=== PATIENT | female | born 1975 | race Caucasian/White ===

== ENCOUNTER 2019-03-08 16:24 | Outpatient (CLI) | payer MEDICARE, SELFPAY ==
[2019-03-08 17:17] LABS: Alanine Aminotransferase 10 U/L (0-33); Albumin Level 4.5 g/dL (3.5-5.2); Alkaline Phosphatase 77 IU/L (35-105); Anion Gap 15.2 (5-19); Aspartate Amino Transferase 13 U/L (0-32); Basophils % 0.6 %; Blood Urea Nitrogen 6 mg/dL (6-20); Calcium 9.9 mg/Dl (8.6-10.0); Carbon Dioxide 30 mmol/L (22-29); Chloride 101 mmol/L (98-107); Eosinophils # 0.1 10^3/uL (0.0-0.8); Globulin 2.5 g/dL (1.3-4.6); Glomerular Filtration Rate 78.7 mL/min (90-130); Glucose 107 mg/dL (74-109); Hematocrit 42.4 % (37.0-47.0); Hemoglobin 13.7 g/dL (11.5-15.3); Lymphocytes # 2.1 10^3/uL (0.8-4.8); Lymphocytes % 31.9 %; Mean Corpuscular HGB Conc 32.3 g/dL (30.0-36.0); Mean Corpuscular Hemoglobin 30.9 pg (28.0-34.0); Mean Corpuscular Volume 95.5 fL (81-99); Mean Platelet Volume 13.1 fL (7.4-10.4); Monocytes # 0.3 10^3/uL (0.2-0.9); Monocytes % 4.8 %; Neutrophils # 4.1 10^3/uL (1.8-7.7); Neutrophils % 61.4 %; Nucleated Red Blood Cells % 0 %; Platelet Count 188 10^3/cmm (130-400); Potassium 4.2 mmol/L (3.5-5.1); Red Blood Count 4.44 10^6/uL (4.1-5.3); Red Cell Distribution Width 12.4 % (12.1-15.1); Sodium 142 mmol/L (136-145); Total Bilirubin 0.3 mg/dL (0.15-1.2); White Blood Count 6.7 10^3/uL (4.0-10.0)
[2019-03-08 19:16] LABS: Slide Review Slide Review Perform
[2019-03-12 16:02] LABS: Immunoglobulin E 66 kU/L (<OR=114)
== END 2019-03-08 16:25 | disposition home or self-care (01) ==
LOC: LAB 16:29
PROVIDERS: Visit Provider Internal Medicine Critical Care Medicine
DX: J45.909 Unspecified asthma, uncomplicated (principal)
CPT/HCPCS: 80053; 82785; 85025

== ENCOUNTER 2019-03-22 14:08 | Emergency (ER) | payer MEDICARE, SELFPAY ==
[2019-03-22 14:22] VITALS: BP 119/88; PULSE 67; RESP 20; TEMP 36.4; O2SAT 98; BMI 26.2
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
[2019-03-22] MEDS: HYDROcodone-acetaminophen 5-325 mg Tablet 1 TAB PO (17:07)
[2019-03-22 17:09] VITALS: PULSE 76; RESP 16; O2SAT 98
== END 2019-03-22 17:10 | disposition home or self-care (01) ==
PROVIDERS: Emergency Provider Physician Assistant
DX: S00.83XA Contusion of other part of head, initial encounter (principal); S90.31XA Contusion of right foot, initial encounter; S06.0X0A Concussion without loss of consciousness, initial encounter; R07.81 Pleurodynia; M54.2 Cervicalgia; Y04.2XXA Assault by strike against or bumped into by another person, initial encounter; J44.9 Chronic obstructive pulmonary disease, unspecified; F17.210 Nicotine dependence, cigarettes, uncomplicated
CPT/HCPCS: 70450; 70486; 71101; 72125; 73630; 99281; 99284

== ENCOUNTER 2019-05-11 10:40 | Emergency (ER) | payer MEDICARE, SELFPAY ==
[2019-05-11 10:40] VITALS: BP 103/79; PULSE 65; RESP 16; TEMP 36.6; O2SAT 100; BMI 26.6
--- NOTE | 2019-05-11 10:45 | ED_ITS ---
Entered by Joslyn Garcia, acting as scribe for Doc Boswell MD HPI - General Adult General: Chief complaint: General Medical Stated complaint: FEVER CP Time Seen by Provider: 05/11/19 10:43 Source: patient and EMS Mode of arrival: ambulatory Limitations: no limitations History of Present Illness: HPI narrative: 44 yo of female presents with congestion and fatigue. pt states this started last night but worsened today. pt had difficulty breathing. pt has a hx of COPD. pt denies any other symptoms at this time. MD complaint: resp issues Onset (ago): day(s) (yesterday) Location: chest Radiation: non-radiation Severity: moderate Pain Consistency: constant Relieving factors: none Exacerbating factors: none Associated symptoms: Reports dyspnea, headache(s) and other (heachache); Deny chest pain, nausea, rash or vomiting Treatments prior to arrival: none Review of Systems General: Reports: 10 or more systems reviewed and unremarkable except in HPI and below Const: Denies: fever, chills or change in appetite ENMT: Denies: throat pain or dental pain Card: Denies: chest pain Resp: Reports: shortness of breath and wheezing GI: Denies: abdominal pain, nausea, vomiting or diarrhea : Denies: painful urination Musc: Denies: neck pain or back pain Skin/Breast: Denies: rash Neuro: Reports: headache Psych: Denies: depression Artemio/Lymph: Denies: easy bruising All/Imm: Denies: hives PFSH ED PFSH: Medical History (Updated 05/11/19 @ 13:07 by Doc Boswell MD) Asthma COPD (chronic obstructive pulmonary disease) Hemoptysis Nicotine dependence, unspecified, uncomplicated Palpitations Post-nasal drip Surgical History (Updated 03/08/19 @ 14:16 by Carlos Luis MD) H/O tubal ligation History of hysterectomy Hx of section Social History Smoking and tobacco status: current every day smoker cigarettes Packs smoked per day: 1 Years cigarettes smoked: 30 Alcohol intake: current Alcohol intake frequency: holidays/special occasions only Current occupational status: unemployed History of recent travel: No Current gender identity: Female Physical Exam Const: COMMON NORMALS: no apparent distress, oriented x3 and healthy appearing HENMT: COMMON NORMALS: normocephalic and head/scalp atraumatic HEAD & SCALP: normocephalic and atraumatic Eye: COMMON NORMALS: PERRL and EOMs intact bilaterally PUPIL: Yes PERRL Neck/C-Spine: COMMON NORMALS: full ROM and supple Chest: COMMONS NORMALS: inspection of chest normal and palpation of chest normal Resp: AUSCULTATION: wheezes Cardio: COMMON NORMALS: regular rate, regular rhythm and no murmurs RATE: regular rate RHYTHM: regular rhythm GI: COMMON NORMALS: normal to inspection, nondistended, normoactive bowel sounds, soft to palpation, non-tender and no masses PALPATION: Yes soft Extremity: COMMON NORMALS: normal to inspection and full ROM Neuro: COMMON NORMALS: oriented x3, moves all extremities and no focal motor deficits Psych: COMMON NORMALS: mental status grossly normal, thought process normal and cooperative THOUGHT PROCESS: normal thought process Skin: COMMON NORMALS: no rashes or lesions noted and no wounds GENERAL SKIN EXAM: no rashes or lesions noted Course Vital Signs: Vital signs: Vital Signs Temperature 97.9 F 05/11/19 10:40 Pulse Rate 72 05/11/19 13:23 Respiratory Rate 17 05/11/19 13:23 Blood Pressure 102/63 05/11/19 13:23 Pulse Oximetry 97 05/11/19 13:23 MDM - General Adult MDM Narrative: Medical decision making narrative: Patient presents here with cough along with fever that is likely a bronchitis. Patient is afebrile here. She has a long history of COPD. Will start patient on antibiotics along with steroids. She has had no coronavirus exposure. She is to follow-up with primary care doctor in 3 to 5 days return to the ER if worsening. She understands and agrees to plan. Lab Data: Labs: Lab Results 05/11/19 05/11/19 05/11/19 Range/Units 11:16 11:16 12:15 WBC 5.5 (4.0-10.0) 10^3/ uL RBC 4.24 (4.1-5.3) 10^6/u L Hgb 12.8 (11.5-15.3) g/dL Hct 39.8 (37.0-47.0) % MCV 93.9 (81-99) fL MCH 30.2 (28.0-34.0) pg MCHC 32.2 (30.0-36.0) g/dL RDW 12.5 (12.1-15.1) % Plt Count 179 (130-400) 10^3/c mm MPV 12.5 H (7.4-10.4) fL Neut % (Auto) 56.8 % Lymph % (Auto) 35.3 % [place] % (Auto) 6.1 % Eos % (Auto) 1.1 % Baso % (Auto) 0.5 % Neut # (Auto) 3.1 (1.8-7.7) 10^3/u L Lymph # (Auto) 2.0 (0.8-4.8) 10^3/u L [place] # (Auto) 0.3 (0.2-0.9) 10^3/u L Eos # (Auto) 0.1 (0.0-0.8) 10^3/u L Baso # (Auto) 0.0 (0.0-0.1) 10^3/u L Nucleated RBC % (a uto) 0 % Nucleated RBCs # 0.0 /100WBC Sodium 143 (136-145) mmol/L Potassium 3.6 (3.5-5.1) mmol/L Chloride 106 (98-107) mmol/L Carbon Dioxide 25 (22-29) mmol/L Anion Gap 15.6 (5-19) BUN 7 (6-20) mg/dL Creatinine 0.6 (0.5-0.9) mg/dL GFR Calculation 109.6 (90-130) mL/min Glucose 97 (65-115) mg/dL Calculated Osmolal ity 292 (285-295) mOsm/k g Calcium 9.7 (8.5-10.5) mg/dL Total Bilirubin 0.5 (0.15-1.2) mg/dL AST 14 (0-32) U/L ALT 9 (0-33) U/L Alkaline Phosphata se 59 (35-105) IU/L Total Protein 6.3 L (6.6-8.7) g/dL Albumin 4.0 (3.5-5.2) g/dL Globulin 2.3 (1.3-4.6) g/dL Influenza Type A A g Negative (Negative) POC Influenza B Ag Negative (Negative) Imaging Data^: CXR: Radiologist's impression: [address] [address] XRay Report Signed Patient: Saurabh Dias Unit #: [id number] : 1975 Age/Sex: 44 / F ADM Date: 05/11/19 Loc: ER Room/Bed: Attending Dr: Ordering Provider/Ordering MD: Doc Boswell MD Date of Service: 05/11/19 Procedure(s): XR chest 1V portable [id number] Accession Number(s): [id number] Report Number: [id number] WS: [id number] XR chest 1V portable [id number] REASON FOR EXAM: cough FINDINGS: Examination one view chest The heart and mediastinal interfaces normal. [place] granulomas seen off the left hilum. These are unchanged since March 22, 2019. The lung sauceda are well aerated. No pneumonia, pleural effusion, pulmonary edema, pneumothorax, or mass effect. The hilum and apices are normal. XR/XR chest 1V portable [id number] IMPRESSION: Negative chest for active pathology Granulomas off the left hilum benign. EKG Data^: EKG 1: Attestation: I personally reviewed and interpreted this EKG as follows: EKG interpretation date: 05/11/19 EKG interpretation time: 11:21 Interpretation: sinus john hr [address] or t wave abnormalities qrs 97 qtc 427 Computer generated interpretation: Chest X-Ray 05/11/19 10:47 IMPRESSION: Negative chest for active pathology Granulomas off the left hilum benign. Discharge Plan Discharge Patient Disposition: Home, Self-Care Clinical Impression: Bronchitis Condition: Stable Prescriptions: New Keflex 500 mg capsule 500 mg PO Q6H 7 Days Qty: 28 RF: 0 prednisone 50 mg tablet 50 mg PO DAILY Qty: 5 RF: 0 No Action Symbicort 160-4.5 mcg/actuation HFA aerosol inhaler 2 inh INHALATION Q12H 60 Days Qty: 10.2 RF: 2 albuterol sulfate [ProAir HFA] 90 mcg/actuation HFA aerosol inhaler 2 puff INHALATION Q4H PRNRF: 0 gabapentin 300 mg capsule 300 mg PO TID RF: 0 quetiapine [Seroquel] 100 mg tablet 100 mg PO ONCE RF: 0 tramadol 50 mg tablet 50 mg PO BID PRNRF: 0 clonazepam 2 mg tablet 2 mg PO BID RF: 0 Complete Multivitamin Tablet 1 tab PO ONCE RF: 0 meloxicam 7.5 mg tablet 7.5 mg PO ONCE RF: 0 ipratropium bromide 0.02 % solution 2.5 ml INHALATION Q4H RF: 0 albuterol sulfate 5 mg/mL solution for nebulization 2.5 mg INHALATION Q4H RF: 0 Discharge Orders: Discharge Order (Routine); Ordered 05/11/19 Ordered By: Doc Boswell Referrals: NOT ON FILE,DOCTOR [Occupational Therapist] - Deni Guo DO [Family Provider] - Discharge Diet: Advance as tolerated Discharge Activity: Resume usual activity Patient Instructions: Acute Bronchitis (ED) Discharge Date/Time: 05/11/19 13:24 Coding Level of Care Code ED Teacher Associate for Chg Fwd Exam Comprehensive The documentation recorded by the Jose cloud Bridget Annette, accurately reflects the service I personally performed and the decisions made by Andreia yuan Korby, MD
--- NOTE | 2019-05-11 10:47 | XR_ITS ---
WS: [id number] XR chest 1V portable [id number] REASON FOR EXAM: cough FINDINGS: Examination one view chest The heart and mediastinal interfaces normal. [place] granulomas seen off the left hilum. These are unc hanged since March 22, 2019. The lung sauceda are well aerated. No pneumonia, pleural effusion, pulmonary edema, pneumothorax, or m ass effect. The hilum and apices are normal. XR/XR chest 1V portable [id number] IMPRESSION: Negative chest for active pathology Granulomas off the left hilum benign.
--- NOTE | 2019-05-11 10:47 | ECG_ITS ---
Measurements Intervals [place] Rate: 57 P: 35 DE: 185 QRS: 91 QRSD: 97 T: 24 QT: 434 QTc: 423 SINUS BRADYCARDIA BORDERLINE RIGHT AXIS DEVIATION [QRS AXIS > 90] POSSIBLE ANTERIOR MYOCARDIAL INFARCTION , PROBABLY OLD [30 ms Q WAVE IN V3/V4, OR R < 0.2 mV IN V4] Compared to ECG 12/20/2018 11:58:06 Sinus arrhythmia no longer present Myocardial infarct finding still present Electronically Signed On 05-12-2019 8:04:13 CDT by Janene Brasher [email or web address]
[2019-05-11 11:01] VITALS: PULSE 52; RESP 16; O2SAT 99
[2019-05-11] MEDS: ipratropium-albuterol 3 mL Neb INHALATION (11:04)
[2019-05-11 11:10] VITALS: PULSE 57; RESP 16; O2SAT 97
[2019-05-11 11:18] VITALS: O2SAT 100
[2019-05-11] MEDS: sodium chloride 0.9% 1,000 ML 999 ML IV (11:26)
[2019-05-11 11:30] LABS: Basophils % 0.5 %; Eosinophils # 0.1 10^3/uL (0.0-0.8); Eosinophils % 1.1 %; Hematocrit 39.8 % (37.0-47.0); Hemoglobin 12.8 g/dL (11.5-15.3); Lymphocytes % 35.3 %; Mean Corpuscular HGB Conc 32.2 g/dL (30.0-36.0); Mean Corpuscular Hemoglobin 30.2 pg (28.0-34.0); Mean Corpuscular Volume 93.9 fL (81-99); Mean Platelet Volume 12.5 fL (7.4-10.4); Monocytes # 0.3 10^3/uL (0.2-0.9); Monocytes % 6.1 %; Neutrophils # 3.1 10^3/uL (1.8-7.7); Neutrophils % 56.8 %; Nucleated Red Blood Cells % 0 %; Platelet Count 179 10^3/cmm (130-400); Red Blood Count 4.24 10^6/uL (4.1-5.3); Red Cell Distribution Width 12.5 % (12.1-15.1); White Blood Count 5.5 10^3/uL (4.0-10.0)
[2019-05-11 11:50] LABS: Alanine Aminotransferase 9 U/L (0-33); Alkaline Phosphatase 59 IU/L (35-105); Anion Gap 15.6 (5-19); Aspartate Amino Transferase 14 U/L (0-32); Blood Urea Nitrogen 7 mg/dL (6-20); Calcium 9.7 mg/dL (8.5-10.5); Carbon Dioxide 25 mmol/L (22-29); Chloride 106 mmol/L (98-107); Globulin 2.3 g/dL (1.3-4.6); Glomerular Filtration Rate 109.6 mL/min (90-130); Glucose 97 mg/dL (65-115); Osmolality Calculated 292 mOsm/kg (285-295); Potassium 3.6 mmol/L (3.5-5.1); Sodium 143 mmol/L (136-145); Total Bilirubin 0.5 mg/dL (0.15-1.2); Total Protein 6.3 g/dL (6.6-8.7)
[2019-05-11 12:25] VITALS: PULSE 74; RESP 18; O2SAT 99
[2019-05-11 13:01] LABS: Influenza A by IFA Negative (Negative); Influenza B by IFA Negative (Negative)
[2019-05-11 13:23] VITALS: BP 102/63; PULSE 72; RESP 17; O2SAT 97
== END 2019-05-11 13:24 | disposition home or self-care (01) ==
LOC: ER 13:13
PROVIDERS: Emergency Provider Emergency Medicine
DX: J44.0 Chronic obstructive pulmonary disease with (acute) lower respiratory infection (principal); J20.9 Acute bronchitis, unspecified; F17.210 Nicotine dependence, cigarettes, uncomplicated; Z79.51 Long term (current) use of inhaled steroids
CPT/HCPCS: 12345; 71045; 80053; 85025; 87804; 93005; 93010; 94640; 96361; 96374; 99283; 99284; J2930; J7030; J7611

== ENCOUNTER 2020-02-20 15:40 | Emergency (ER) | payer MEDICARE, SELFPAY ==
[2020-02-20 15:43] VITALS: BP 145/85; PULSE 76; RESP 18; TEMP 36.8; O2SAT 99; BMI 24.3
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
[2020-02-20 16:47] LABS: Basophils # 0.1 10^3/uL (0.0-0.1); Basophils % 0.6 %; Eosinophils # 0.1 10^3/uL (0.0-0.8); Hematocrit 41.6 % (37.0-47.0); Hemoglobin 13.2 g/dL (11.5-15.3); Lymphocytes # 1.7 10^3/uL (0.8-4.8); Lymphocytes % 19.2 %; Mean Corpuscular HGB Conc 31.7 g/dL (30.0-36.0); Mean Corpuscular Hemoglobin 30.9 pg (28.0-34.0); Mean Corpuscular Volume 97.4 fL (81-99); Mean Platelet Volume 12.4 fL (7.4-10.4); Monocytes # 0.5 10^3/uL (0.2-0.9); Neutrophils # 6.48 10^3/uL (1.8-7.7); Nucleated Red Blood Cells % 0 %; Platelet Count 186 10^3/cmm (130-400); Red Blood Count 4.27 10^6/uL (4.1-5.3); Red Cell Distribution Width 12.2 % (12.1-15.1); White Blood Count 8.9 10^3/uL (4.0-10.0)
[2020-02-20 17:05] LABS: INR 0.99 (0.8-1.2); Partial Thromboplastin Time 18.9 SECONDS (23.9-36.7)
[2020-02-20 17:10] LABS: Lactic Sepsis W/Reflex 1.6 mmol/L (0.5-2.2)
[2020-02-20] MEDS: iohexol 300 mg/mL 100 mL Btl IV (17:23)
[2020-02-20 17:59] LABS: Alanine Aminotransferase 13 U/L (0-33); Albumin Level 4.2 g/dL (3.5-5.2); Alkaline Phosphatase 90 IU/L (35-105); Aspartate Amino Transferase 14 U/L (0-32); Blood Urea Nitrogen 10 mg/dL (6-20); Calcium 9.5 mg/dL (8.5-10.5); Carbon Dioxide 26 mmol/L (22-29); Chloride 103 mmol/L (98-107); Globulin 2.4 g/dL (1.3-4.6); Glomerular Filtration Rate 135.3 mL/min (90-130); Glucose 88 mg/dL (65-115); Lipase 20 U/L (13-60); Osmolality Calculated 288 mOsm/kg (285-295); Sodium 140 mmol/L (136-145); Total Bilirubin 0.2 mg/dL (0.15-1.2); Total Protein 6.6 g/dL (6.6-8.7)
[2020-02-20 18:05] VITALS: BP 142/79; PULSE 74; RESP 18; O2SAT 99
[2020-02-20 18:18] LABS: Add Urine Microscopic? NO
[2020-02-20 18:21] LABS: Anion Gap 15.2 (5-19); Potassium 4.2 mmol/L (3.5-5.1)
[2020-02-20 18:35] LABS: Bilirubin Urine Neg (Negative); Blood Urine Neg (Negative); Glucose Urine UA Norm (Normal); Ketones Urine Negative (Negative); Leukocyte Esterase Urine Negative (Negative); Nitrate Urine Negative (Negative); Protein Urine Neg (Negative); Specific Gravity, Urine 1.015 (1.005-1.030); Sulfosalicylic Acid Urine Negative (Negative); Urine Appearance Clear (CLEAR); Urine Color Yellow (Yellow); Urobilinogen Urine Norm (Negative); pH Urine 9 (5-7)
== END 2020-02-20 18:10 | disposition home or self-care (01) ==
PROVIDERS: Emergency Provider Family Medicine
DX: Z04.1 Encounter for examination and observation following transport accident (principal); J44.9 Chronic obstructive pulmonary disease, unspecified; F17.210 Nicotine dependence, cigarettes, uncomplicated; V59.9XXA Occupant (driver) (passenger) of pick-up truck or van injured in unspecified traffic accident, initial encounter
CPT/HCPCS: 12345; 70450; 71260; 72125; 74177; 80053; 81003; 83605; 83690; 85025; 85610; 85730; 99281; 99283; Q9967

== ENCOUNTER 2020-06-10 06:00 | Outpatient (RCR) | payer MEDICARE, MEDICAID, SELFPAY | END 2020-06-20 23:59 | disposition home or self-care (01) | LOC: GPT 06:00 | PROVIDERS: Referring Provider Family Medicine; Visit Provider Family Medicine | DX: M54.2 Cervicalgia (principal) | CPT/HCPCS: 97032; 97110; 97140; 97162; 97530 ==